=== PATIENT | female | born 1995 | race Caucasian/White ===

== ENCOUNTER 2017-05-05 17:43 | Emergency (ER) | payer SELFPAY ==
[~2017-05-05] VITALS: Ht 175.3 cm; Wt 105.0 kg
[~2017-05-05 17:43] MED LIST: ZOFR4TAB3 PO
[2017-05-05 17:45] VITALS: BP 169/85; PULSE 70; RESP 16; TEMP 98.5; O2SAT 97
--- NOTE | 2017-05-05 18:48 | PD ---
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 Patient states that last time she had this, she had a urinary tract infection. Patient is the same social partner for 2 years. She denies any abnormal vaginal discharge. Patient has no chronic medical problems and takes no prescribed medications. Severity is mild. No exacerbating or alleviating factors. PFSH Past Medical History Diminished Hearing: No Genitourinary: Yes (uti) Tetanus Vaccination: < 5 Years Influenza Vaccination: Yes ?: Unknown LMP: 04/03/17 Past Surgical History Surgical History: No Previous Surgery Social History Alcohol Use: No Tobacco Use: No Substance Use: No Allergies-Medications (Allergen,Severity, Reaction): Coded Allergies: No Known Allergies (Verified Allergy, Unknown, 05/05/17) Reported Meds & Prescriptions Reported Meds & Active Scripts Active No Active Prescriptions or Reported Medications Review of Systems Except as stated in HPI: all other systems reviewed are Neg Physical Exam Narrative GENERAL: Well-nourished, well-developed female patient, ambulatory. Afebrile. SKIN: Focused skin assessment warm/dry. HEAD: Normocephalic. Atraumatic. EYES: No scleral icterus. No injection or drainage. NECK: Supple, trachea midline. No JVD or lymphadenopathy. CARDIOVASCULAR: Regular rate and rhythm without murmurs, gallops, or rubs. RESPIRATORY: Breath sounds equal bilaterally. No accessory muscle use. Lungs sounds are clear to auscultation. GASTROINTESTINAL: Abdomen soft, non-tender, nondistended. MUSCULOSKELETAL: No cyanosis, or edema. BACK: Nontender without obvious deformity. No CVA tenderness. GENITOURINARY: Normal external genitalia without lesions or erythema. Vaginal vault without blood or drainage. Cervical os was closed without drainage. No cervical motion tenderness. Uterus nontender and nonenlarged. Bilateral adnexa nontender without masses. This exam was done with RN at bedside. Data Data Last Documented VS Vital Signs Date Time Temp Pulse Resp B/P (MAP) Pulse Ox O2 Delivery O2 Flow Rate FiO2 05/05/17 18:37 17 05/05/17 17:45 98.5 70 169/85 (113) 97 Room Air Orders Orders Gc And Chlamydia Pcr (05/05/17 18:09) Wet Prep Profile (05/05/17 18:09) Urinalysis - C+S If Indicated (05/05/17 18:09) Ed Urine Pregnancytest Poc (05/05/17 18:09) Urine Culture (05/05/17 18:22) Labs Laboratory Tests Test 05/05/17 18:22 05/05/17 18:40 Urine Color YELLOW Urine Turbidity CLEAR Urine pH 5.5 Urine Specific [place] 1.029 Urine Protein TRACE mg/dL Urine Glucose (UA) NEG mg/dL Urine Ketones NEG mg/dL Urine Occult Blood NEG Urine Nitrite NEG Urine Bilirubin NEG Urine Urobilinogen LESS THAN 2.0 MG/DL Urine Leukocyte Esterase MOD Urine RBC 0-3 /hpf Urine WBC 25-49 /hpf Urine Squamous Epithelial Cells 0-5 /hpf Urine Bacteria FEW /hpf Microscopic Urinalysis Comment CULTURE INDICATED Clue Cells (Wet Prep) NONE SEEN Vaginal Trichomonas (Wet Prep) NONE SEEN Vaginal Yeast (Wet Prep) NONE SEEN MDM Medical Decision Making Medical Screen Exam Complete: Yes Emergency Medical Condition: Yes Medical Record Reviewed: Yes Differential Diagnosis UTI versus vaginal candidiasis versus BV Narrative Course 21-year-old female presents to the emergency department for evaluation of "my vagina itches". UA, urine test, wet prep profile, GC/Chlamydia are ordered and pending. ED urine test is negative. UA shows 25-49 WBC, few bacteria. Wet prep is negative for Trichomonas, clue cells, yeast. Patient was discharged prescription for Macrobid for UTI. I will Also give her prescription for Diflucan for possible false negative yeast on wet prep. Patient verbalizes agreement and understanding. The patient was discharged in stable condition with instructions, including return instructions and follow up instructions. Diagnosis Primary Impression: Urinary tract infection Qualified Codes: N30.00 - Acute cystitis without hematuria Referrals: Primary Care Physician call for appointment Patient Instructions: General Instructions, Urinary Tract Infection in Women ( ED) Additional Instructions: Take antibiotic as directed until gone. Take Diflucan. Follow-up with your primary care physician. Return to the emergency department for any acute worsening of symptoms. Med/Other Pt SpecificInfo: Prescription(s) given Scripts Fluconazole (Diflucan) 150 Mg Tab 150 MG PO ONCE for Infection, #1 TAB 0 Refills Prov: Hazel Espinosa 05/05/17 Nitrofurantoin Monohydrate Macrocrystals (Macrobid) 100 Mg Capsule 100 MG PO BID for Infection for 7 Days, #14 CAP 0 Refills Prov: Hazel Espinosa 05/05/17 Disposition: 01 DISCHARGE HOME Condition: Stable Hazel Espinosa May 05, 2017 18:48
[2017-05-05 18:56] LABS: BLOOD, URINE NEG (NEG); GLUCOSE,URINE NEG (NEG); KETONE, URINE NEG (NEG); NITRITE,URINE NEG (NEG); PH, URINE 5.5 (5.0-8.5); URINE COLOR YELLOW (YELLW/STRAW)
[2017-05-05 19:08] LABS: BACTERIA, URINE FEW /hpf; COMMENT (UR) CULTURE INDICATED; CULTURE IF INDICATED CULTURE INDICATED; RBC, URINE 0-3 /hpf (0-3); SQUAMOUS EPITHELIAL CELL URINE 0-5 /hpf (0-5)
[2017-05-05] MEDS ORDERED: MACR100C2 PO (19:25)
[2017-05-05] MEDS ORDERED: DIFL150T PO (19:25)
--- NOTE | 2017-05-05 19:28 | PD ---
Physical Exam Date Seen by Provider: May 05, 2017 Time Seen by Provider: 19:25 Narrative This patient presents with a four-day history of vaginal itching and burning. Data Data Last Documented VS Vital Signs Date Time Temp Pulse Resp B/P (MAP) Pulse Ox O2 Delivery O2 Flow Rate FiO2 05/05/17 18:37 17 05/05/17 17:45 98.5 70 169/85 (113) 97 Room Air Orders Orders Gc And Chlamydia Pcr (05/05/17 18:09) Wet Prep Profile (05/05/17 18:09) Urinalysis - C+S If Indicated (05/05/17 18:09) Ed Urine Pregnancytest Poc (05/05/17 18:09) Urine Culture (05/05/17 18:22) Ed Discharge Order (05/05/17 19:26) Labs Laboratory Tests Test 05/05/17 18:22 05/05/17 18:40 Urine Color YELLOW Urine Turbidity CLEAR Urine pH 5.5 Urine Specific [place] 1.029 Urine Protein TRACE mg/dL Urine Glucose (UA) NEG mg/dL Urine Ketones NEG mg/dL Urine Occult Blood NEG Urine Nitrite NEG Urine Bilirubin NEG Urine Urobilinogen LESS THAN 2.0 MG/DL Urine Leukocyte Esterase MOD Urine RBC 0-3 /hpf Urine WBC 25-49 /hpf Urine Squamous Epithelial Cells 0-5 /hpf Urine Bacteria FEW /hpf Microscopic Urinalysis Comment CULTURE INDICATED Clue Cells (Wet Prep) NONE SEEN Vaginal Trichomonas (Wet Prep) NONE SEEN Vaginal Yeast (Wet Prep) NONE SEEN MDM Supervised Visit with DORIAN: Yes Narrative Course I, Dr. Stoner, have reviewed the advance practice practitioner's documentation and am in agreement, met with the patient face to face, made the diagnosis, and the medical decision making was done by me. *My assessment and Findings: Patient is awake and alert and does not appear to be in any distress. Her abdomen is soft. UA>>mod LE, 25-49 WBCs wet prep neg Please see Hazel Espinosa NP's note for laboratory and radiology results, final diagnosis and disposition Diagnosis Primary Impression: Urinary tract infection Qualified Codes: N30.00 - Acute cystitis without hematuria Referrals: Primary Care Physician call for appointment Patient Instructions: General Instructions, Urinary Tract Infection in Women ( ED) Additional Instruction: Take antibiotic as directed until gone. Take Diflucan. Follow-up with your primary care physician. Return to the emergency department for any acute worsening of symptoms. Scripts Fluconazole (Diflucan) 150 Mg Tab 150 MG PO ONCE for Infection, #1 TAB 0 Refills Prov: Hazel Espinosa 05/05/17 Nitrofurantoin Monohydrate Macrocrystals (Macrobid) 100 Mg Capsule 100 MG PO BID for Infection for 7 Days, #14 CAP 0 Refills Prov: Hazel Espinosa 05/05/17 Disposition: 01 DISCHARGE HOME Condition: Stable Nicole Stoner MD May 05, 2017 19:28
[2017-05-05 21:25] LABS: CHLAMYDIA PCR NOT DETECTED (NOT DETECT); NEISSERIA PCR NOT DETECTED (NOT DETECT)
== END 2017-05-05 19:50 | disposition home or self-care (01) ==
LOC: NEPD 17:43
DX: N39.0 Urinary tract infection, site not specified (principal); B96.89 Other specified bacterial agents as the cause of diseases classified elsewhere
CPT/HCPCS: 81001; 84703; 87086; 87210; 87491; 87591; 99284

== ENCOUNTER 2017-08-29 21:09 | Emergency (ER) | payer SELFPAY ==
[~2017-08-29 21:09] MED LIST changes: +DIFL150T PO; +MACR100C2 PO; -ZOFR4TAB3 PO
== END 2017-08-29 21:50 | disposition left against medical advice (07) ==
LOC: PHED 21:09
DX: Z53.21 Procedure and treatment not carried out due to patient leaving prior to being seen by health care provider (principal)
CPT/HCPCS: 99281